=== PATIENT | male | born 1990 | race Caucasian/White ===

== ENCOUNTER 2017-02-22 12:50 | Emergency (ER) | payer SELFPAY ==
[2017-02-22 13:11] VITALS: TEMP 97.5; O2SAT 95
[2017-02-22 13:18] LABS: PLATELET COUNT 363 10^3/uL (150-400)
[2017-02-22] MEDS ORDERED: LORazepam 2 MG/ML INJ IVP ONE (13:44)
--- NOTE | 2017-02-22 13:48 | EDPHY ---
H & P Time Seen by Provider: 02/22/17 13:33 HPI/ROS: CHIEF COMPLAINT: Seizure HISTORY OF PRESENT ILLNESS: 26-year-old male presents to the emergency department by ambulance after having a witnessed seizure. The patient was at a restaurant and had a witnessed tonic-clonic seizure lasting 1 min. Patient was confused consistent with being postictal. Currently the patient has no complaints. He states that he is prescribed Xanax 2 mg daily and has been on this for at least 10 years. He ran out of the medication 2 days ago. He also states that he has felt extremely anxious and has been unable to sleep last 2 nights. He feels extremely anxious now. He denies pain in his chest or difficulty breathing. No fevers or chills. The patient did apparently hit his head. He has a mild headache. He denies neck or back pain. REVIEW OF SYSTEMS: Constitutional: No fever, no chills. Eyes: No double or blurry vision. ENT: No sore throat. Respiratory: No cough, no shortness of breath. Cardiac: No chest pain. Gastrointestinal: No abdominal pain, vomiting or diarrhea. Genitourinary: No dysuria. Musculoskeletal: No neck or back pain. Skin: No rashes. Neurological: No headache. Past Medical/Surgical History: Anxiety on Xanax, has had seizures in the past. Social History: Recently moved here from [place] Smoking Status: Current some day smoker Physical Exam: General Appearance: Alert, no distress. Patient is mentating normally and answering questions appropriately. He has a palpable hematoma to the crown of his head with a very superficial abrasion measuring approximately 3 cm in diameter. No evidence of depressed skull fracture. No suturable lacerations noted. Eyes: Pupils equal and round. Extraocular motions are all intact. ENT: Mouth: Mucous membranes moist. Patient has a superficial abrasion noted to the inside of the left lower lip as well as in the buccal mucosa in the back right of his mouth. Respiratory: No wheezing, rhonchi, or rales, lungs are clear to auscultation. Cardiovascular: Regular rate and rhythm. Gastrointestinal: Abdomen is soft and nontender, no masses, no rebound or guarding, bowel sounds normal. Neurological: Alert and oriented x 3, cranial nerves II through XII grossly intact Skin: Warm and dry, no rashes. Musculoskeletal: Nontender to palpate along the cervical, thoracic or lumbar spine. Neck is supple. Extremities: Full range of motion and no peripheral edema. Psychiatric: Patient is oriented X 3, there is no agitation. Constitutional: Initial Vital Signs Temperature (C) 36.4 C 02/22/17 13:09 Heart Rate 104 H 02/22/17 13:09 Respiratory Rate 18 02/22/17 13:09 Blood Pressure 158/87 H 02/22/17 13:09 O2 Sat (%) 95 02/22/17 13:09 O2 Delivery Mode Room Air Allergies/Adverse Reactions: tramadol Allergy (Verified 02/22/17 13:08) Home Medications: Medication Instructions Recorded ALPRAZolam [Xanax 1 MG (*)] 1 mg PO BID #14 tab 02/22/17 Xanax 1 MG (*) 02/22/17 Medical Decision Making ED Course/Re-evaluation: 26-year-old male presents to the emergency department after having a witnessed seizure. The patient hit his head and has a mild headache. I recommended CT imaging of his brain especially given his seizure activity, however the patient declined. The patient is mentating normally and answering questions appropriately. The patient understands that intracranial bleeding could not be ruled out nor can tumor other masses that may have caused him to have a seizure. He understands that he could have another seizure. Patient was given IV Ativan. Patient was instructed that he is unable to drive until follow-up with neurologist. He was given a referral to a neurologist. He was also given a refill of his Xanax 1 mg tablets 10. Laboratory studies reveal [place] 12[place] [address]. The patient does not want any further intervention. Comfortable being discharged home. Differential Diagnosis: Seizure including but not limited to electrolyte abnormality, alcohol withdrawal , medication noncompliance, head injury, and breakthrough seizure. - Data Points Laboratory Results: Laboratory Results 02/22/17 12:50 02/22/17 12:50 02/22/17 02/22/17 12:50 12:50 WBC 13.41 10^3/uL H 10^3/uL (3.80-9.50) RBC 5.42 10^6/uL 10^6/uL (4.40-6.38) Hgb 16.9 g/dL g/dL (13.7-17.5) Hct 48.4 % % (40.0-51.0) MCV 89.3 fL fL (81.5-99.8) MCH 31.2 pg pg (27.9-34.1) MCHC 34.9 g/dL g/dL (32.4-36.7) RDW 12.1 % % (11.5-15.2) Plt Count 363 10^3/uL 10^3/uL (150-400) MPV 9.4 fL fL (8.7-11.7) Neut % (Auto) 33.6 % L % (39.3-74.2) Lymph % (Auto) 56.6 % H % (15.0-45.0) Mitchell % (Auto) 6.6 % % (4.5-13.0) Eos % (Auto) 1.6 % % (0.6-7.6) Baso % (Auto) 1.2 % % (0.3-1.7) Nucleat RBC Rel Count 0.0 % % (0.0-0.2) Absolute Neuts (auto) 4.51 10^3/uL 10^3/uL (1.70-6.50) Absolute Lymphs (auto) 7.59 10^3/uL H 10^3/uL (1.00-3.00) Absolute Monos (auto) 0.89 10^3/uL H 10^3/uL (0.30-0.80) Absolute Eos (auto) 0.21 10^3/uL 10^3/uL (0.03-0.40) Absolute Basos (auto) 0.16 10^3/uL H 10^3/uL (0.02-0.10) Absolute Nucleated RBC 0.00 10^3/uL 10^3/uL (0-0.01) Immature Gran % 0.4 % % (0.0-1.1) Seg Neutrophils % 26 % % Band Neutrophils % 1 % % Lymphocytes % 67 % % Monocytes % 4 % % Eosinophils % 2 % % Immature Gran # 0.05 10^3/uL 10^3/uL (0.00-0.10) Absolute Seg Neuts 3.49 10^/uL 10^/uL (1.70-6.50) Absolute Band Neuts 0.13 10^3/uL 10^3/uL (0.00-0.70) Absolute Lymphocytes 8.98 10^3/uL H 10^3/uL (1.00-3.00) Absolute Monocytes 0.54 10^3/uL 10^3/uL (0.30-0.80) Absolute Eosinophils 0.27 10^3/uL 10^3/uL (0.03-0.40) RBC/WBC/PLT Morphology NORMAL (NORMAL) Atypical Lymphocytes 2+ H Platelet Estimate ADEQUATE (ADEQ) Smear Review By Pending Sodium 143 mEq/L mEq/L (134-144) Potassium 3.8 mEq/L mEq/L (3.5-5.2) Chloride 102 mEq/L mEq/L (97-110) Carbon Dioxide 12 mEq/l L mEq/l (22-31) Anion Gap 29 mEq/L H mEq/L (8-16) BUN 15 mg/dL mg/dL (7-23) Creatinine 1.1 mg/dL mg/dL (0.7-1.3) Estimated GFR > 60 Glucose 110 mg/dL H mg/dL (70-100) Calcium 9.8 mg/dL mg/dL (8.5-10.4) Total Bilirubin 1.1 mg/dL mg/dL (0.1-1.4) AST 38 IU/L IU/L (17-59) ALT 37 IU/L IU/L (21-72) Alkaline Phosphatase 51 IU/L IU/L (38-126) Total Protein 8.0 g/dL g/dL (6.3-8.2) Albumin 5.2 g/dL H g/dL (3.5-5.0) Medications Given: Discontinued Medications Lorazepam (Ativan Injection) 1 mg IVP EDNOW ONE Stop: 02/22/17 13:45 Last Admin: 02/22/17 13:50 Dose: 1 mg Departure - Departure Disposition: Home, Routine, Self-Care Clinical Impression: Seizure, Anxiety Condition: Good Instructions: Nonepileptic Seizures (ED), Anxiety (ED) Additional Instructions: You refused CT imaging of your brain to further evaluate for intracranial injury or possible intracranial causes of seizure. You should not drive a car until cleared by neurologist. Continue Xanax as prescribed. You understand that you should not stop this medication abruptly. You should follow up with primary care provider if you would like to wean herself off of this medication. You should also discuss alternative medications that you can take for symptoms of anxiety. Return to the emergency department if you developed recurring seizure, vomiting , worsening headache, or if you feel worse in any way. Referrals: Christ Moore DO [Medical Doctor] - 5-7 days, call for appt. (Neurologist on- call) Madan Youssef MD [Medical Doctor] - 2-3 days without fail (Primary care provider water pollution specialist) Prescriptions: ALPRAZolam [Xanax 1 MG (*)] 1 mg PO BID #14 tab
[2017-02-22 14:06] VITALS: BP 143/106; PULSE 109; RESP 16
== END 2017-02-22 14:05 | disposition home or self-care (01) ==
DX: G40.909 Epilepsy, unspecified, not intractable, without status epilepticus (principal); F41.9 Anxiety disorder, unspecified; F17.200 Nicotine dependence, unspecified, uncomplicated
CPT/HCPCS: 96374; J2060